=== PATIENT | male | born 1975 | race Caucasian/White ===

== ENCOUNTER → 2019-05-11 | Outpatient (CLI) | payer BC ==
--- NOTE | 2019-05-12 12:44 | MR ---
EXAMINATION TYPE: MR knee LT wo con DATE OF EXAM: 05/11/2019 COMPARISON: Prior MR left knee 02/10/2010 HISTORY: lt knee pain TECHNIQUE: Multiplanar, multisequence imaging of the left knee is performed without IV contrast. FINDINGS: MEDIAL MENISCUS: Posterior horn of the medial meniscus shows a truncated appearance on sagittal image 22 and 23, abnormal signal extends into the root of the posterior horn LATERAL MENISCUS: Anterior and posterior horns are intact without tear. CRUCIATE LIGAMENTS: Stable in appearance. COLLATERAL LIGAMENTS: The medial collateral ligament and lateral collateral ligament complex are inta ct and unremarkable. EXTENSOR MECHANISM: Visualized quadriceps and patellar tendons are intact. EFFUSION: Suprapatellar joint effusion has developed in the interval. POPLITEAL CYST: Minute semimembranosus gastrocnemius cyst is present.. TRICOMPARTMENT SPACES: Maintained CARTILAGE: 3 to grade IV chondromalacia posterior patella, medial compartment, cleft in the articular cartilage at the medial femoral condyle laterally is again noted. BONE MARROW SIGNAL: No focal abnormal marrow signal is appreciated. OTHER: Marginal spurring present tricompartmentally IMPRESSION: Tear of the posterior horn of the medial meniscus as described. Osteoarthritis.
== END | disposition home or self-care (01) ==
LOC: RADMRIMAIN 11:26
PROVIDERS: ATTEND Family Medicine
DX: S83.242A Other tear of medial meniscus, current injury, left knee, initial encounter (principal); M17.12 Unilateral primary osteoarthritis, left knee

== ENCOUNTER → 2019-05-25 | Outpatient (CLI) | payer BC ==
[2019-05-25 17:19] LABS: Basophils # (A) 0.1 k/uL (0-0.2); Basophils % (A) 1 %; Eosinophils # (A) 0.2 k/uL (0-0.7); Eosinophils % (A) 2 %; HCT 43.8 % (39.0-53.0); Lymphocytes # (A) 2.7 k/uL (1.0-4.8); Lymphocytes % (A) 40 %; MCH 31.6 pg (25.0-35.0); MCHC 34.3 g/dL (31.0-37.0); Monocytes # (A) 0.5 k/uL (0-1.0); Monocytes % (A) 7 %; Neutrophils # (A) 3.2 k/uL (1.3-7.7); Neutrophils % (A) 48 %; Platelet Count 241 k/uL (150-450); RBC 4.76 m/uL (4.30-5.90); RDW 12.5 % (11.5-15.5); WBC 6.8 k/uL (3.8-10.6)
[2019-05-25 17:22] LABS: Potassium 3.9 mmol/L (3.5-5.1)
== END | disposition home or self-care (01) ==
LOC: LABPAT 16:03
PROVIDERS: ATTEND Orthopaedic Surgery
DX: Z01.812 Encounter for preprocedural laboratory examination (principal); M23.92 Unspecified internal derangement of left knee
CPT/HCPCS: 80051; 85025

== ENCOUNTER → 2019-06-09 | Day surgery (SDC) | payer BC ==
[2019-06-03 12:07] VITALS: BMI 34.2
--- NOTE | 2019-06-08 12:53 | HP ---
HISTORY AND PHYSICAL CHIEF COMPLAINT: Left knee pain. 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 He notes diffuse pain, worse with stairs and kneeling. He notes intermittent giving way and weakness. He has tried previous medications for this. He notes he is quite symptomatic and limited by this. PAST MEDICAL HISTORY: Negative. PAST SURGICAL HISTORY: Significant for right rotator cuff repair. CURRENT MEDICATIONS: None. He denies drug allergies. FAMILY HISTORY: Significant for cancer. SOCIAL HISTORY: Significant for tobacco use. REVIEW OF SYSTEMS: A 16-point review of systems otherwise reviewed and is noncontributory. PHYSICAL EXAMINATION: On examination, the patient is approximately 6 foot 1, 260 pounds of mesomorphic habitus. HEENT: Exam is nonfocal. NECK: Supple. He has painless passive motion of his left hip. Active motion left knee -10 to 130 degrees of flexion. He has a large effusion. He is tender about the medial joint line. Collaterals are stable, Shannon is negative, Lianet's elicits medial pain. His distal neurovascular nerve neurovascular exam appears intact in the left lower extremity. Previous x-rays of the left knee obtained in the office show moderate patellofemoral, along with mild medial compartment narrowing, MRI report for the left knee 05/11/2019 shows a posterior medial meniscal tear along with degenerative joint disease of the patellofemoral compartment and a cough, possible chondral injury and injury of the medial femoral condyle. IMPRESSION: 1. Internal derangement left knee with symptomatic medial meniscal tear. 2. Left knee patellofemoral compartment osteoarthrosis. RECOMMENDATIONS: I talked to the patient at length. Written regarding his condition along with treatment options. At this point, quite symptomatic, having pain and mechanical symptoms that limit him. After thorough discussion, he opts to proceed with surgery. We will plan to proceed with left knee arthroscopy with probable partial medial meniscectomy. Risks and benefits were discussed at length in layman's terms. We will likely perform that as an outpatient procedure. MMODL / IJN: [id number] /
[~2019-06-09] MED LIST: EPINEPHrine (PF) 1 ML in SODIUM CHLORIDE 0.9% IRRIGATIO 3,000 ML IRRIGATION ONE; KETOROLAC 30 MG/ML 1 ML VIAL IVP ONE; LACTATED RINGERS 1,000 ML IV ONE; LACTATED RINGERS 1,000 ML IV SCH; LIDOCAINE 1% 20 ML VIAL (10MG/ML) FOR IV START INTRADERMA PRN; LIDOCAINE 1% INJ 10MG/ML (20 ML MDV) ONE; MIDAZOLAM 2 MG/2 ML VIAL ONE; ONDANSETRON 4 MG/2 ML VIAL IVP ONE; PROPOFOL 10 MG/ML 20 ML VIAL IV ONE; SUCCINYLCHOLINE CHLORIDE VIAL 200 MG/10 ML VIAL IV ONE; fentaNYL (PF) 50 MCG/ML 2 ML AMP ONE
--- NOTE | 2019-06-09 14:30 | P.OP ---
Date of Procedure: 06/09/19 Preoperative Diagnosis: Left knee internal derangement Postoperative Diagnosis: Left knee posterior medial meniscal tear/grade 3 chondral injury distal medial femoral condyle Procedure(s) Performed: Left knee arthroscopic partial medial meniscectomy/medial femoral chondrectomy/microfracture of the medial femoral condyle Anesthesia: JEANNIE Surgeon: Billy Ascencio Estimated Blood Loss (ml): 10 Pathology: none sent Condition: stable Disposition: PACU Indications for Procedure: The patient's a 44-year-old male presents with progressive left knee pain and mechanical symptoms despite conservative measures. A discussion of the risks and benefits of operative intervention versus continued conservative measures was made with the patient. He opted proceed with surgery. Operative risks to include infection, neurovascular injury, development of blood clots, possible incomplete resolution of symptoms, possible worsening symptoms and need for subsequent procedures was discussed. Informed consent was obtained. Operative Findings: As below Description of Procedure: The patient was brought to the operating room, and after induction of general anesthesia examined the left knee. Collaterals were stable, Shannon was nega tive, and posterior drawer was negative. The left lower extremity was prepped and draped in a normal fashion. A superior lateral portal was made through a 3 mm skin incision superior and lateral to the patella. This was used for outflow. A large effusion was encountered. A lateral portal was made through a 5 mm vertical skin incision lateral to the patella tendon above the joint line. Diagnostic arthroscopy was performed. On inspection of the medial compartment, a complex tear involving the posterior horn of the medial meniscus in the white-red junction was noted.. This was debrided back to stable base with straight baskets and a motorized shaver. A corresponding grade 3 chondral injury was noted involving the distal lateral portion of the medial femoral condyle. There was a loose chondral fragment debrided back to stable base with a motorized shaver. Microfracture was then performed with a chondral awl breeching the subchondral surface down to the bone marrow elements. On inspection of the notch, the anterior cruciate ligament appeared to be intact. On inspection of the lateral compartment, no significant cartilage or meniscal pathology was noted. On inspection of the patellofemoral articulation, grade 3-4 chondral changes were noted diffusely. The gutters were clear debris. The knee was then thoroughly irrigated. The portals were closed with Steri-Strips. A sterile dressing was applied in addition to a compression stocking. The patient was awoken from general anesthesia and transferred to recovery room in good condition. Blood loss was estimated at 10 mL. No complications were incurred.
[2019-06-09 14:33] VITALS: TEMP 97.3
[2019-06-09 14:36] VITALS: RESP 16
[2019-06-09] MEDS: HYDROmorphone 0.5 MG/0.5 ML SYRINGE IVP PRN ×2 (14:39→14:51)
[2019-06-09 15:29] VITALS: BP 130/79; PULSE 65
== END | disposition home or self-care (01) ==
LOC: OR 11:16
PROVIDERS: ATTEND Orthopaedic Surgery
DX: S83.232A Complex tear of medial meniscus, current injury, left knee, initial encounter (principal); M94.262 Chondromalacia, left knee; M17.12 Unilateral primary osteoarthritis, left knee; Z80.9 Family history of malignant neoplasm, unspecified; Z72.0 Tobacco use; X58.XXXA Exposure to other specified factors, initial encounter
CPT/HCPCS: 29881; 29879; J2250; J0330; J0690; J2405; J0171; J2001; J3010; J1885; J2704; J1170